=== PATIENT | male | born 1955 | race Caucasian/White ===

== ENCOUNTER 2018-02-24 19:54 | Emergency (ER) | payer OTHER ==
[~2018-02-24] VITALS: Ht 188 cm; Wt 145.4 kg
[2018-02-24] MEDS ORDERED: [UNRECOGNIZED DRUG - REMARK] PO (20:07)
[2018-02-24] MEDS ORDERED: UNK ALLERGY MED PO (20:07)
[2018-02-24] MEDS ORDERED: IBUPROFEN 600 MG TABLET PO ONE (22:15)
[2018-02-24] MEDS ORDERED: METHOCARBAMOL 500 MG TABLET PO ONE (22:15)
[2018-02-24 22:45] VITALS: BP 169/98
== END 2018-02-24 23:19 | disposition home or self-care (01) ==
LOC: EMS 19:55
DX: S13.4XXA Sprain of ligaments of cervical spine, initial encounter (principal); M25.562 Pain in left knee; M54.5 Low back pain; I10 Essential (primary) hypertension; V43.52XA Car driver injured in collision with other type car in traffic accident, initial encounter; Y93.89 Activity, other specified; Y92.89 Other specified places as the place of occurrence of the external cause; Y99.8 Other external cause status
CPT/HCPCS: 72040; 72100